=== PATIENT | male | born 1955 | race Caucasian/White ===

== ENCOUNTER 2018-01-08 11:34 | Inpatient (IN) | payer BC ==
[2018-01-08] VITALS (7 sets, daily range): BP systolic 117–198; BP diastolic 63–90
[~2018-01-08] VITALS: Ht 172.7 cm; Wt 62.3 kg
--- NOTE | ~2018-01-08 | EKG ---
[place], [place] ELECTROCARDIOGRAM REPORT NAME: SAMANTHA SHIELDS UNIT #: [id number] ROOM: 415 DOCTOR: SABAS ESPINAL MD,WERNER BIRTHDATE: [birth year] DOS: 01/08/2018 ELECTROCARDIOGRAM TIME: 3:23 p.m. CONCLUSION: Sinus rhythm was noted. Heart rate 99 beats per minute with APCs. WERNER OBREGON MD CM:EKGRPT:ELECTROCARDIOGRAM REPORT [id number] WERNER ESPINAL MD
--- NOTE | ~2018-01-08 | PR ---
[place], [place] PROGRESS NOTE NAME: [facility]DS [id number] UNIT #: [id number] ROOM: 415 DOCTOR: SABAS ESPINAL MD,WERNER BIRTHDATE: [birth year] DOS: 01/12/2018 PULMONARY FOLLOWUP SUBJECTIVE: The patient noted comfortable at this time, resting, showing gradual reduction of the respiratory symptom. The cough has been noted with a small amount of sputum expectoration, able to expectorate sputum gradually. He denies symptoms of wheezing or chest pain. OBJECTIVE: VITAL SIGNS: Normal temperature, respiratory rate 16, heart rate 86, blood pressure 142/60. Pulse oxygen saturation recorded as 95% saturation. HEENT: Head was atraumatic. Eyes nonicterus. NECK: Supple. CARDIOVASCULAR: S1, S2 is audible. LUNGS: Noted generally decreased breath sounds in the lungs bilaterally. ABDOMEN: Soft, nontender. Bowel sounds present. EXTREMITIES: Without any acute edema. IMPRESSION: 1. The patient with scattered subcentimeter pulmonary nodule; ____ by appearance in the left upper lobe with consideration of acute pneumonia. 2. The patient with resolving acute hypercapnic and hypoxic respiratory failure as well on this admission. PLAN OF TREATMENT: Continuation of bronchodilators, oxygen supplementation. Solu-Medrol, the patient to continue 40 mg b.i.d. Discharge planning will be started. Home oxygen assessment will be ordered for the home use of oxygen. WERNER OBRGEON MD CM:PNTRANS [id number] WERNER ESPINAL MD 01/13/18 1036 interface
--- NOTE | ~2018-01-08 | EKG ---
[place], [place] ELECTROCARDIOGRAM REPORT NAME: SAMANTHA SHIELDS UNIT #: [id number] ROOM: 415 DOCTOR: SABAS ESPINAL MD,WERNER BIRTHDATE: [birth year] DOS: 01/08/2018 Electrocardiogram done on 01/08/2018, at 12:10 p.m. Sinus tachycardia noted, heart rate of 110 beats per minute. Possible ST elevation noted in V3 and V4. Rule out acute [place] WERNER OBREGON MD CM:EKGRPT:ELECTROCARDIOGRAM REPORT [id number] 35 WERNER ESPINAL MD
--- NOTE | ~2018-01-08 | CON ---
[place], [place] REPORT OF CONSULTATION NAME[facility]EL[id number] UNIT #: [id number] ROOM: 415 DOCTOR: SABAS ESPINAL MDWERNER BIRTHDATE: [birth year] DOS: 01/09/2018 PULMONARY CONSULTATION, EVALUATION, AND MANAGEMENT REASON FOR CONSULTATION: To assess the patient for current acute exacerbation of COPD and respiratory failure. HISTORY OF PRESENT ILLNESS: A 62-year-old white male who has been noted ill for the past 2 months or so. He has been noted increased symptoms of shortness of breath occurring with exertion. The symptoms have been noted progressively worsened. For the past couple of weeks, she has been noted with coughing associated with purulent sputum expectoration, moderate amount. The patient denies symptoms of hemoptysis with that. He does have symptoms of chest tightness and wheezing. Denies symptoms of chest pain. Denies angina pain. The patient came into the hospital for further medical management. REVIEW OF SYSTEMS: CONSTITUTIONAL SYMPTOMS: Fatigue and tiredness noted without any symptoms of fever or chills. EYES: Denies burning, redness, or tenderness. EARS, NOSE, AND THROAT SYMPTOMS: No sore throat, hoarseness, otalgia, postnasal drainage, or epistaxis. CARDIOVASCULAR SYSTEM: Denies angina pain, edema, or pain of lower extremity. GASTROINTESTINAL SYMPTOMS: No dysphagia, nausea, vomiting, diarrhea, abdominal pain, hematemesis, melena, or hematochezia. MUSCULOSKELETAL SYMPTOMS: No acute joint pain, redness, or tenderness. SKIN: Denies lesions or rashes. CENTRAL NERVOUS SYSTEM: Denies dizziness, headache, diplopia, or syncopal episodes. Remaining systems were reviewed and they were noted all negative. PAST MEDICAL HISTORY: 1. The patient was known with a history of long-term tobacco use. 2. Essential hypertension. 3. COPD. PAST SURGICAL HISTORY: Noted with knee surgeries in the past. SOCIAL HISTORY: The patient stated he lives at home, has been . Does not have any children. Denies any alcohol or illicit drug use. Worked in a factory manufacturing bottles of the oil. The patient was noted with tobacco use, since early teens, about a pack of cigarettes per day that was discontinued 2 weeks ago prior to the hospitalization in 12/2017. FAMILY HISTORY: Father is an elderly [id number] with no medical illnesses. Mother from complication related to malignancy. HOME MEDICATIONS: None. [place], [place] REPORT OF CONSULTATION NAME: SAMANTHA SHIELDS UNIT #: [id number] ROOM: [facility] DOCTOR: SABAS ESPINAL MD,WERNER BIRTHDATE: [birth year] DRUG ALLERGIES: Noted with no known drug allergies. PHYSICAL EXAMINATION: GENERAL: This is a 62-year-old male who has been noted currently awake and alert without acute distress at this time, sitting on the bed. Height of the patient recorded by the nursing staff on current admission with height of 5 feet 8 inches and weight 137 pounds. VITAL SIGNS: Vital signs of the patient which has been recorded showed the temperature noted normal, respiratory rate 18-24, heart rate of 118 on admission, currently 97, blood pressure 198/90 on admission, currently 148/73. The pulse oxygen saturation was recorded as 85% on room air, on 4 liters nasal cannula is 95% and later on 100%, and on nonrebreather mask 100% with the BiPAP setting of 20/10, which were changed previously from 12/6 as 98% saturation. HEENT: On examination, head was atraumatic. Eyes nonicterus. NECK: Supple. Oral mucosa moist. CARDIOVASCULAR: S1, S2 audible. LUNGS: The patient was noted with decreased breath sounds and diffuse expiratory wheezing. No crackles. ABDOMEN: Soft, nontender. EXTREMITIES: Without acute edema, clubbing, or cyanosis. MUSCULOSKELETAL: No acute deformities. SKIN: Noted without lesions or rashes. CENTRAL NERVOUS SYSTEM: Cranial nerves 2-12 intact. LABORATORY DATA: Arterial blood gas on 15 liters of oxygen with nonrebreather mask, pH 7.22, pCO2 71, and pO2 27 on admission. The arterial blood gas that was done later, pH 7.29, pCO2 of 56, and pO2 97.2 on 3 liters nasal cannula. The lactic acid is 2.5, followup of 1.6. CBC of the patient yesterday, WBC count 10.9, hemoglobin and hematocrit normal, and platelet count was normal. CMP of the patient of 01/08/2018, glucose 147, BUN normal, and creatinine was normal. Sodium 126 and chloride of 87. Remaining LFTs were noted grossly normal. The troponin was noted mildly elevated 0.47 at the second set. The third set was noted as normal. CBC today: WBC count normal, hemoglobin 12.1, hematocrit was recorded as 36.9, and platelet count was normal. PT and PTT were noted as normal. BMP this morning, normal BUN and creatinine. Sodium was elevated at 134 this morning. DIAGNOSTIC DATA: One view chest x-ray of the patient that was done on admission was reviewed, was not noted with any acute pulmonary infiltration. The patient had a CTA of the chest that was done in the Emergency Room was reviewed, there was no evidence of pulmonary embolism. The parenchymal window review was done, it does show tree-in-bud appearance and nodular infiltration involving the left upper lung and lingula. Another ____ was noted, some in the left lower lobe. Remaining lung was noted clear. IMPRESSION: 1. The patient who has been currently admitted to the hospital with longstanding symptoms, which have potentially worsened recently would be considered with the diagnosis of acute pneumonia involving the left lung with [place], [place] REPORT OF CONSULTATION NAME: SAMANTHA SHIELDS UNIT #: [id number] ROOM: [facility] DOCTOR: SABAS ESPINAL MD,WERNER BIRTHDATE: [birth year] acute hypoxic respiratory failure and concomitant acute exacerbation of chronic obstructive pulmonary disease. 2. Acute on chronic hypoxic respiratory failure secondary to exacerbation of chronic obstructive pulmonary disease. 3. History of chronic nicotine dependence. Tobacco cessation done 2 weeks ago as per the patient. 4. Uncontrolled hypertension noted with respiratory distress on admission, seemed to be improving gradually. The patient has not seen any doctor regularly for the past several years. 5. The patient with hyponatremia related to intravascular volume depletion and decreased oral intake. PLAN OF TREATMENT: Continuation of the bronchodilator with oxygen supplementation, corticosteroids, and therapies as previously ordered with IV Solu-Medrol. Collect the sputum for Gram stain and culture. Addition of steroids based on improvement in symptoms. Continue abstinence of the tobacco use was addressed with the patient. Hyponatremia, most likely related to the decreased oral intake with an intravascular dehydration could be considered, currently improving. The patient would be encouraged about continued on the oral fluid. Continue medical management for the acute on chronic hypoxic respiratory failure with the use of the BiPAP, current pressures. Monitor results of the sputum culture with further change in treatment will be done based on the culture results with observation of sputum yesterday, many white blood cells, moderate epithelial cells, moderate gram-positive cocci in pairs and clusters, a few gram-negative bacilli, normal isha, and normal rate noted. WERNER OBREGON MD CM:CONSTR:REPORT OF CONSULTATION 1607 01/10/18 0122 interface
--- NOTE | ~2018-01-08 | PR ---
[place], [place] PROGRESS NOTE NAME: SAMANTHA SHIELDS [facility] #: [id number] UNIT #: [id number] ROOM: 415 DOCTOR: SABAS ESPINAL MD,WERNER BIRTHDATE: [birth year] DOS: 01/10/2018 SUBJECTIVE: The patient has been noted comfortable at this time, resting, using the oxygen supplementation, with use of BiPAP earlier. Denies symptoms of chest pain. Cough has been noted with intermittent small amount of sputum expectoration as per the patient. There were no symptoms of hemoptysis or wheezing reported. Denies symptoms of nausea, vomiting, diarrhea, abdominal pain, hematemesis, melena, or hematochezia. General weakness persisted. Remaining systems were reviewed, they were noted all negative. OBJECTIVE: VITAL SIGNS: For the patient, which has been recorded for the patient as the patient has been transferred from the ICU to telemetry with normal temperature, respiratory rate recorded as 20, heart rate 89, blood pressure 154/84-148/66. Pulse oxygen saturation on 4 L nasal cannula 98% saturation. Intake is 1300 mL, output 972 mL. HEENT: Examination shows head was atraumatic. Eyes nonicterus. NECK: Supple. CARDIOVASCULAR: S1, S2 audible. LUNGS: Show decreased breath sounds noted in the lungs bilaterally. Moderate expiratory wheezing still noted. ABDOMEN: Obese, soft, nontender, bowel sounds present. CENTRAL NERVOUS SYSTEM: Cranial nerves 2-12 intact. MUSCULOSKELETAL: Without any acute deformities. SKIN: Visible, no lesions or rashes. LABORATORY DATA: Blood culture from 01/08/2018 showed no bacterial growth, final results were pending. Culture of the spontaneous sputum for the patient from 01/08/2018 was noted as normal isha. No other labs for the patient were done today. IMPRESSION: 1. The patient who has not been currently noted with ongoing acute pneumonia with acute hypoxic respiratory failure and acute exacerbation of chronic obstructive pulmonary disease. 2. Past nicotine abuse. 3. Uncontrolled hypertension. 4. Hyponatremia was also noted that was improving. 5. Subcentimeter pulmonary nodule noted in the left lower and left upper lobe at 3-4 mm in size. Several tree-in-bud density noted in the lungs bilaterally. PLAN OF MANAGEMENT: Continue with the same dose of corticosteroids without any changes, bronchodilators, and the antibiotics. Continuation of the BiPAP for the patient with intermittent break during the daytime and continue using it at nighttime. Bronchodilators with other treatment of the patient to be continued. Continuation of the other plan of therapy and management and care. Reduction of the corticosteroids could be started from tomorrow for the patient based on the further improvement in the pulmonary status. [place], [place] PROGRESS NOTE NAME: SAMANTHA SHIELDS UNIT #: [id number] ROOM: [facility] DOCTOR: WERNER LONG MD BIRTHDATE: [birth year] WERNER OBREGON MD CM:PNTRANS [id number] WERNER ESPINAL MD 01/10/18 8188 interface
--- NOTE | ~2018-01-08 | PR ---
[place], [place] PROGRESS NOTE NAME: SAMANTHA SHIELDS UNIT #: [id number] ROOM: 415 DOCTOR: WERNER LONG MD BIRTHDATE: [birth year] DOS: 01/11/2018 PULMONARY FOLLOWUP SUBJECTIVE: The patient has been noted comfortable at this time, resting in the bed, reported small amount of sputum expectoration this morning. Denies symptoms of chest pain or any hemoptysis. OBJECTIVE: VITAL SIGNS: For the patient, which were recorded showed the temperature noted as normal. Respiratory rate 18, heart rate 90, blood pressure to 129/66. Pulse oxygen saturation recorded as 96% on 4 liter nasal cannula. HEENT: Shows no acute change. NECK: Supple. CARDIOVASCULAR: S1, S2 audible. LUNGS: Noted moderate decreased breath sounds with scattered expiratory wheezing, no crackles. ABDOMEN: Soft, nontender. EXTREMITIES: Without any acute edema. LABORATORY DATA: CBC: WBC count 11.2, hemoglobin 12, platelet count was normal. The BMP of patient this morning, glucose 134. Sodium 134. IMPRESSION: 1. The patient with resolving acute exacerbation of chronic obstructive pulmonary disease progressive at this time. 2. Overall debility. 3. Hyponatremia as well. 4. Acute pneumonia with acute hypoxic respiratory failure as well. PLAN OF MANAGEMENT: Continuation of current therapy, plan of management and other care plan. Usual treatment, other supportive plan of therapy. The patient was noted with gradual but slow improvement in the overall respiratory status. [place], [place] PROGRESS NOTE NAME: SAMANTHA SHIELDS UNIT #: [id number] ROOM: 415 DOCTOR: WERNER LONG MD BIRTHDATE: [birth year] WERNER OBREGON MD CM:PNTRANS [id number] WERNER ESPINAL MD 01/12/18 0541 interface
--- NOTE | ~2018-01-08 | PR ---
[place], [place] PROGRESS NOTE NAME: SAMANTHA SHIELDS [facility] #: [id number] UNIT #: [id number] ROOM: 415 DOCTOR: SABAS ESPINAL MD,WERNER BIRTHDATE: [birth year] DOS: 01/13/2018 SUBJECTIVE: He has been noted comfortable at this time, resting in the bed without any distress. Denies symptoms of coughing, chest pain, or sputum expectoration. Denies symptoms of abdominal pain, nausea, vomiting, diarrhea, or any abdominal pain. OBJECTIVE: VITAL SIGNS: For the patient which were recorded showed the temperature noted as normal, respiratory rate of 18, heart rate 76, blood pressure ____. The pulse ox saturation noted on room air as 94% saturation at rest. HEENT: Head was atraumatic. Eyes nonicterus. NECK: Supple. CARDIOVASCULAR: S1, S2 is audible. LUNGS: The patient was noted without any wheezing or crackles. ABDOMEN: Soft, nontender. EXTREMITIES: Without any acute edema. IMPRESSION: 1. The patient with resolution of acute hypoxic respiratory failure. 2. Acute pneumonia as well. 3. Significant improvement in acute exacerbation of chronic obstructive pulmonary disease. PLAN OF TREATMENT: Absent tobacco use. Discharge the patient on oral medication, prednisone, and use of inhalers and antibiotics. Outpatient followup is strongly recommended post-discharge. WERNER OBREGON MD CM:PNTRANS [id number] WERNER ESPINAL MD 01/14/18 0231 interface
[~2018-01-08 11:34] MED LIST: AMOXIL500 M1 PO; AZITHROMYCIN250 MG PO; B-1100 MG PO; DAYPRO600 M1 PO; LIBRIUM10 MG PO; MUCINEX600 MG PO; MULTIPLE VITAMI1 CAP PO; NKHM PO; NORVASC5 MG PO; PREDNISONE10 MG PO; VENTOLIN H0.09 MG/AC INH; VIBRAMYCIN100 MG PO; VICO10300 PO; [UNRECOGNIZED DRUG - OTHER] T
[2018-01-08 12:14] LABS: ABG BASE EXCESS -1.3 mmol/L (-2.0-2.0); ABG HCO3 28.3 mmol/l (22-26); ABG O2 SATURATION 99.3 % (95-97); ARTERIAL BLOOD GAS PH 7.224 (7.35-7.45)
[2018-01-08 12:14] LABS: HEMATOCRIT 48.4 % (42.0-52.0); HEMOGLOBIN 16.1 g/dl (14.0-18.0); MEAN CELL VOLUME 93.3 fl (80.0-94.0); MEAN CORPUSCULAR HGB CONC 33.3 g/dl (33.0-37.0); MEAN PLATELET VOLUME 9.8 fl (9.6-12.3); PLATELET COUNT AUTOMATED 339 10*3/uL (130-400); RED BLOOD COUNT 5.19 10*6/uL (4.50-5.90); RED CELL DISTRI WIDTH 11.7 % (0-14.5); WHITE BLOOD COUNT 10.9 10*3/uL (4.8-10.8)
[2018-01-08 12:33] LABS: TOTAL CELLS COUNTED 100 #CELLS
[2018-01-08 12:35] LABS: PLATELET SUFFICIENCY NORMAL (NORMAL)
[2018-01-08 12:36] LABS: ALBUMIN 3.5 gm/dl (3.1-4.5); ALKALINE PHOSPHATASE 87 U/L (45-117); BUN 13 mg/dl (7-24); CHLORIDE 87 mmol/L (98-107); CREATININE 1.03 mg/dL (0.70-1.30); POTASSIUM 4.7 mmol/L (3.5-5.1); SGOT/AST 26 IU/L (3-35); SGPT/ALT 21 U/L (12-78); SODIUM 126 mmol/L (136-145); TOTAL PROTEIN 8.4 gm/dL (6.4-8.2)
[2018-01-08 12:37] LABS: TROPONIN I 0.028 ng/ml (<0.045)
[2018-01-08 13:08] LABS: ACT PARTIAL THROMBO TIME 26.7 SECONDS (20.8-31.5)
[2018-01-08 18:39] LABS: ABG BASE EXCESS -0.8 mmol/L (-2.0-2.0); ABG HCO3 26.2 mmol/l (22-26); ARTERIAL BLOOD GAS PCO2 56.5 mmHg (35-45); ARTERIAL BLOOD GAS PH 7.29 (7.35-7.45); ARTERIAL BLOOD GAS PO2 97.2 mmHg (80-90)
[2018-01-09] VITALS: BP 129/67
[2018-01-09 03:59] VITALS: BP 121/53
[2018-01-09 05:49] LABS: BASO % 0.1 % (0.0-1.0); LYMPH # 0.9 10*3/uL (1.3-4.4); LYMPH % 10.1 % (27.0-41.0); MEAN CELL VOLUME 93.9 fl (80.0-94.0); MEAN CORPUSCULAR HGB 30.8 pg (27.0-31.0); MEAN CORPUSCULAR HGB CONC 32.8 g/dl (33.0-37.0); MEAN PLATELET VOLUME 9.6 fl (9.6-12.3); MONO # 1.4 10*3/uL (0.1-1.0); MONO % 15.8 % (3.0-9.0); NEUT # 6.6 10*3/uL (2.3-7.9); NEUT % 73.7 % (47.0-73.0); PLATELET COUNT AUTOMATED 281 10*3/uL (130-400); RED BLOOD COUNT 3.93 10*6/uL (4.50-5.90); RED CELL DISTRI WIDTH 11.8 % (0-14.5)
[2018-01-09 06:10] LABS: HEMATOCRIT 36.9 % (42.0-52.0); HEMOGLOBIN 12.1 g/dl (14.0-18.0)
[2018-01-09 06:12] LABS: BUN 14 mg/dl (7-24); CHLORIDE 98 mmol/L (98-107); POTASSIUM 4.3 mmol/L (3.5-5.1); SODIUM 134 mmol/L (136-145)
[2018-01-09 06:23] LABS: CHOLESTEROL 89 mg/dL (<200); CREATININE 0.77 mg/dL (0.70-1.30); HDL CHOLESTEROL 46 mg/dl (40-60); LDL CHOLESTEROL 31 mg/dL (9-159); PHOSPHOROUS 2.6 mg/dL (2.5-4.9); TRIGLYCERIDES 59 mg/dl (<150); VLDL CHOLESTEROL 12 mg/dL (6-40)
[2018-01-09 06:38] LABS: ACT PARTIAL THROMBO TIME 27.1 SECONDS (20.8-31.5); INTERNATIONAL NORM RATIO 0.9 (2.0-3.5)
[2018-01-09 08:00] VITALS: BP 134/68
[2018-01-09 12:00] VITALS: BP 148/73
[2018-01-09 16:00] VITALS: BP 154/70
[2018-01-09 20:00] VITALS: BP 158/65
[2018-01-10] VITALS: BP 125/53; BP 148/66
[2018-01-10 08:00] VITALS: BP 154/84
[2018-01-10 12:00] VITALS: BP 137/53
[2018-01-10 16:00] VITALS: BP 134/58
[2018-01-10 20:00] VITALS: BP 138/66
[2018-01-11] VITALS: BP 129/66
[2018-01-11 06:54] LABS: BASO % 0.1 % (0.0-1.0); HEMATOCRIT 36.5 % (42.0-52.0); LYMPH # 1.2 10*3/uL (1.3-4.4); LYMPH % 10.9 % (27.0-41.0); MEAN CELL VOLUME 93.8 fl (80.0-94.0); MEAN CORPUSCULAR HGB 30.8 pg (27.0-31.0); MEAN CORPUSCULAR HGB CONC 32.9 g/dl (33.0-37.0); MEAN PLATELET VOLUME 9.5 fl (9.6-12.3); MONO # 0.9 10*3/uL (0.1-1.0); MONO % 8.4 % (3.0-9.0); NEUT # 8.9 10*3/uL (2.3-7.9); NEUT % 79.8 % (47.0-73.0); PLATELET COUNT AUTOMATED 338 10*3/uL (130-400); RED BLOOD COUNT 3.89 10*6/uL (4.50-5.90); RED CELL DISTRI WIDTH 12.1 % (0-14.5); WHITE BLOOD COUNT 11.2 10*3/uL (4.8-10.8)
[2018-01-11 07:18] LABS: BUN 14 mg/dl (7-24); CHLORIDE 96 mmol/L (98-107); POTASSIUM 4.2 mmol/L (3.5-5.1); SODIUM 134 mmol/L (136-145)
[2018-01-11 08:00] VITALS: BP 159/66
[2018-01-11 16:00] VITALS: BP 143/63
[2018-01-11 20:00] VITALS: BP 141/70
[2018-01-12] VITALS: BP 152/60
[2018-01-12 06:43] LABS: BASO % 0.2 % (0.0-1.0); EOS % 0.2 % (1.0-4.0); HEMATOCRIT 36.9 % (42.0-52.0); HEMOGLOBIN 12.1 g/dl (14.0-18.0); LYMPH # 2.3 10*3/uL (1.3-4.4); LYMPH % 18.2 % (27.0-41.0); MEAN CELL VOLUME 94.1 fl (80.0-94.0); MEAN CORPUSCULAR HGB 30.9 pg (27.0-31.0); MEAN CORPUSCULAR HGB CONC 32.8 g/dl (33.0-37.0); MEAN PLATELET VOLUME 9.4 fl (9.6-12.3); MONO # 1.2 10*3/uL (0.1-1.0); NEUT # 9.1 10*3/uL (2.3-7.9); NEUT % 70.9 % (47.0-73.0); PLATELET COUNT AUTOMATED 354 10*3/uL (130-400); RED BLOOD COUNT 3.92 10*6/uL (4.50-5.90); RED CELL DISTRI WIDTH 12.2 % (0-14.5); WHITE BLOOD COUNT 12.8 10*3/uL (4.8-10.8)
[2018-01-12 07:22] LABS: BUN 19 mg/dl (7-24); CHLORIDE 96 mmol/L (98-107); CREATININE 0.74 mg/dL (0.70-1.30); POTASSIUM 3.8 mmol/L (3.5-5.1); SODIUM 135 mmol/L (136-145)
[2018-01-12 08:00] VITALS: BP 164/91
[2018-01-12 12:00] VITALS: BP 142/60
[2018-01-12 16:00] VITALS: BP 149/59
[2018-01-12 20:00] VITALS: BP 143/58
[2018-01-13] VITALS: BP 147/60
[2018-01-13 06:29] LABS: HEMATOCRIT 38.2 % (42.0-52.0); HEMOGLOBIN 12.6 g/dl (14.0-18.0); MEAN CELL VOLUME 92.5 fl (80.0-94.0); MEAN CORPUSCULAR HGB 30.5 pg (27.0-31.0); MEAN PLATELET VOLUME 9.2 fl (9.6-12.3); PLATELET COUNT AUTOMATED 359 10*3/uL (130-400); RED BLOOD COUNT 4.13 10*6/uL (4.50-5.90); RED CELL DISTRI WIDTH 12.2 % (0-14.5); WHITE BLOOD COUNT 15.2 10*3/uL (4.8-10.8)
[2018-01-13 06:49] LABS: BUN 17 mg/dl (7-24); CHLORIDE 96 mmol/L (98-107); CREATININE 0.71 mg/dL (0.70-1.30); POTASSIUM 4.1 mmol/L (3.5-5.1); SODIUM 133 mmol/L (136-145)
[2018-01-13 07:07] LABS: PLATELET SUFFICIENCY NORMAL (NORMAL); TOTAL CELLS COUNTED 100 #CELLS
[2018-01-13 07:08] LABS: BURR CELLS FEW
[2018-01-13 08:00] VITALS: BP 161/76
[2018-01-13] MEDS ORDERED: PREDNISONE10 MG PO (09:38)
[2018-01-13] MEDS ORDERED: VITAMIN D-32000 UNIT PO (09:38)
[2018-01-13] MEDS ORDERED: DOXYCYCLINE100 M3 PO (09:38)
== END 2018-01-13 13:05 | disposition home or self-care (01) | DRG 871 ==
LOC: ED 11:34 → EDHOLD 15:34 → 4E 15:34 → ICCU 15:56 → 4E 01-09 15:46
PROVIDERS: Family Medicine; Internal Medicine; Internal Medicine Critical Care Medicine; Nurse Practitioner Family; Student in an Organized Health Care Education/Training Program
DX: A41.9 Sepsis, unspecified organism (principal); J18.1 Lobar pneumonia, unspecified organism; J96.01 Acute respiratory failure with hypoxia; J96.02 Acute respiratory failure with hypercapnia; E87.1 Hypo-osmolality and hyponatremia; J44.1 Chronic obstructive pulmonary disease with (acute) exacerbation; J44.0 Chronic obstructive pulmonary disease with (acute) lower respiratory infection; R65.20 Severe sepsis without septic shock; R73.9 Hyperglycemia, unspecified; R91.1 Solitary pulmonary nodule; E83.41 Hypermagnesemia; I10 Essential (primary) hypertension; F10.10 Alcohol abuse, uncomplicated; F17.200 Nicotine dependence, unspecified, uncomplicated; Z79.1 Long term (current) use of non-steroidal anti-inflammatories (NSAID); Z80.9 Family history of malignant neoplasm, unspecified; Z71.6 Tobacco abuse counseling

== ENCOUNTER 2019-06-08 23:45 | Emergency (ER) | payer MEDICARE ==
--- NOTE | ~2019-06-08 | EKG ---
[place], [place] ELECTROCARDIOGRAM REPORT NAME: SAMANTHA SHIELDS UNIT #: [id number] ROOM: DOCTOR: EPIPHANY DRAFT REPORT BIRTHDATE: [birth year] [facility] Test Date: 2019-06-09 Test Time: 00:07:13 Pat Name: SAMANTHA HSIELDS Department: Room: Gender: M Duty Engineer: Luisa Prado : 1955 Requested By: NOLA ARMANDO Order Number: [id number] Reading MD: Raghu Swanson MD Measurements Intervals [place] Rate: 68 P: 69 ME: 201 QRS: 74 QRSD: 94 T: 60 QT: 389 QTc: 414 Interpretive Statements Sinus rhythm Low voltage, precordial leads Borderline ST elevation, inferior leads Compared to ECG 11/10/2018 16:22:16 Low QRS voltage now present ST (T wave) deviation still present Electronically Signed On 06-09-2019 5:48:55 PDT by Raghu Swanson MD CM:EKGRPT:ELECTROCARDIOGRAM REPORT [id number] NOLA CHAVEZ DRAFT REPORT NOLA ARMANDO DO
[~2019-06-08 23:45] MED LIST changes: +DOXYCYCLINE100 M3 PO; +VITAMIN D-32000 UNIT PO
[2019-06-09 00:18] LABS: BASO % 0.4 % (0.0-1.0); EOS # 0.3 10*3/uL (0.0-0.4); EOS % 3.1 % (1.0-4.0); HEMATOCRIT 41.3 % (42.0-52.0); HEMOGLOBIN 13.3 g/dl (14.0-18.0); LYMPH # 2.4 10*3/uL (1.3-4.4); LYMPH % 26.1 % (27.0-41.0); MEAN CELL VOLUME 89.8 fl (80.0-94.0); MEAN CORPUSCULAR HGB 28.9 pg (27.0-31.0); MEAN CORPUSCULAR HGB CONC 32.2 g/dl (33.0-37.0); MEAN PLATELET VOLUME 10.2 fl (9.6-12.3); MONO # 0.8 10*3/uL (0.1-1.0); NEUT # 5.7 10*3/uL (2.3-7.9); NEUT % 61.1 % (47.0-73.0); PLATELET COUNT AUTOMATED 254 10*3/uL (130-400); RED CELL DISTRI WIDTH 14.6 % (0-14.5); WHITE BLOOD COUNT 9.3 10*3/uL (4.8-10.8)
[2019-06-09] MEDS ORDERED: BISACODYL5 MG PO (00:25)
[2019-06-09] MEDS ORDERED: DULCOLAX STOOL100 M1 PO (00:28)
[2019-06-09] MEDS ORDERED: ACETAMINOPHEN500 M4 PO (00:29)
[2019-06-09] MEDS ORDERED: ASPIRIN ADULT L81 M2 PO (00:30)
[2019-06-09] MEDS ORDERED: SENNA8.6 MG PO (00:30)
[2019-06-09] MEDS ORDERED: PEPCID20 MG PO (00:31)
[2019-06-09] MEDS ORDERED: LINZESS145 MC1 PO (00:31)
[2019-06-09] MEDS ORDERED: BREO ELLIPTA 11 EACH INH (00:32)
[2019-06-09] MEDS ORDERED: IRON325 M1 PO (00:32)
[2019-06-09] MEDS ORDERED: LIPITOR40 MG PO (00:32)
[2019-06-09] MEDS ORDERED: APRESOLINE25 MG PO (00:33)
[2019-06-09 00:35] LABS: ALBUMIN 3.9 gm/dl (3.1-4.5); ALKALINE PHOSPHATASE 124 U/L (45-117); BUN 17 mg/dl (7-24); CHLORIDE 101 mmol/L (98-107); CREATININE 0.79 mg/dL (0.70-1.30); POTASSIUM 3.9 mmol/L (3.5-5.1); SGOT/AST 15 IU/L (3-35); SGPT/ALT 29 U/L (12-78); SODIUM 136 mmol/L (136-145); TOTAL PROTEIN 7.4 gm/dL (6.4-8.2)
[2019-06-09 00:39] LABS: TROPONIN I < 0.015 ng/ml (<0.045)
== END 2019-06-09 04:05 | disposition other institution (70) ==
LOC: ED 23:45
PROVIDERS: Emergency Medicine
DX: G45.9 Transient cerebral ischemic attack, unspecified (principal); J44.9 Chronic obstructive pulmonary disease, unspecified; I10 Essential (primary) hypertension; K21.9 Gastro-esophageal reflux disease without esophagitis; E78.5 Hyperlipidemia, unspecified; Z79.899 Other long term (current) drug therapy; Z79.82 Long term (current) use of aspirin; Z87.891 Personal history of nicotine dependence; Z86.73 Personal history of transient ischemic attack (TIA), and cerebral infarction without residual deficits

== ENCOUNTER → 2024-04-11 | Outpatient (CLI) | payer MEDICARE ==
[~2024-04-11] MED LIST changes: +ACETAMINOPHEN500 M4 PO; +APRESOLINE25 MG PO; +ASPIRIN ADULT L81 M2 PO; +BISACODYL5 MG PO; +BREO ELLIPTA 11 EACH INH; +DULCOLAX STOOL100 M1 PO; +IRON325 M1 PO; +LINZESS145 MC1 PO; +LIPITOR40 MG PO; +PEPCID20 MG PO; +SENNA8.6 MG PO
== END | disposition home or self-care (01) ==
LOC: CT 12:46
PROVIDERS: ATTEND Internal Medicine
DX: Z12.2 Encounter for screening for malignant neoplasm of respiratory organs (principal); R91.8 Other nonspecific abnormal finding of lung field; J43.9 Emphysema, unspecified; I25.10 Atherosclerotic heart disease of native coronary artery without angina pectoris; Z87.891 Personal history of nicotine dependence